=== PATIENT | male | born 1955 | race Caucasian/White ===

== ENCOUNTER 2020-08-07 09:05 | Outpatient (RCR) | payer MEDICARE, SELFPAY | END 2020-09-24 13:00 | disposition home or self-care (01) | LOC: HO.WCC 09:05 | PROVIDERS: Visit Provider Surgery | DX: T25.222D Burn of second degree of left foot, subsequent encounter (principal); T25.221D Burn of second degree of right foot, subsequent encounter; T31.0 Burns involving less than 10% of body surface; E11.42 Type 2 diabetes mellitus with diabetic polyneuropathy | CPT/HCPCS: 16020; 97597; 99213 ==

== ENCOUNTER 2020-11-10 01:07 | Outpatient (REF) | payer SELFPAY ==
[2020-11-10 06:58] LABS: Hematocrit 21.9 % (42-52); Mean Corpuscular HGB Conc 31.5 g/dl (31.0-36.0); Mean Corpuscular Hemoglobin 32.2 pg (27.0-33.0); Mean Corpuscular Volume 102.3 fL (80-98); Mean Platelet Volume 10.7 fL (9.4-12.4); NRBC Pct Auto 0.2 /100WBC (0.0-0.2); Platelet Count 170 X10*3/uL (160-400); Red Blood Count 2.14 X10*6/uL (4.60-5.80); Red Cell Distribution Width 20.1 % (11.0-16.0); White Blood Count 12.3 X10*3/uL (4.8-10.8)
[2020-11-10 07:30] LABS: Anion Gap 21 (12-20); Blood Urea Nitrogen 39 mg/dL (9-16); Calcium 8.2 mg/dL (8.4-10.2); Carbon Dioxide 20 mmol/L (22-29); Chloride 90 mmol/L (96-108); Glucose Random 133 mg/dL (60-115); Potassium 2.9 mmol/L (3.3-5.1); Sodium 128 mmol/L (135-145)
[2020-11-10 07:37] LABS: Hemoglobin 6.9 g/dl (14.0-18.0)
[2020-11-10 08:10] LABS: Estimated Glomerular Filt Rate 10
== END 2020-11-10 01:08 | disposition home or self-care (01) ==
LOC: HO.MMNH1L 01:07
PROVIDERS: Visit Provider Family Medicine
DX: I48.91 Unspecified atrial fibrillation (principal); I50.9 Heart failure, unspecified
CPT/HCPCS: 36415; 80048; 85027

== ENCOUNTER 2020-11-24 | Outpatient (REF) | payer SELFPAY ==
[2020-11-24 06:19] LABS: MANUAL DIFF FLAG NO
[2020-11-24 06:23] LABS: Basophils Absolute Auto 0.1 X10*3/uL (0.0-0.2); Basophils Percent Auto 0.5 % (0-2); Eosinophils Absolute Auto 0.9 X10*3/uL (0.0-0.4); Eosinophils Percent Auto 6.6 % (0-4); Hematocrit 23.5 % (42-52); Hemoglobin 7.4 g/dl (14.0-18.0); Imm Gran Abs Auto 0.17 X10*3/uL (0.00-0.03); Imm Gran Pct Auto 1.3 % (0.0-0.4); Lymphocytes Absolute Auto 1.1 X10*3/uL (1.2-4.9); Lymphocytes Percent Auto 8.5 % (20-40); Mean Corpuscular HGB Conc 31.5 g/dl (31.0-36.0); Mean Corpuscular Hemoglobin 32.2 pg (27.0-33.0); Mean Corpuscular Volume 102.2 fL (80-98); Mean Platelet Volume 10.4 fL (9.4-12.4); Monocytes Absolute Auto 1.5 X10*3/uL (0.1-1.2); NRBC Pct Auto 0.6 /100WBC (0.0-0.2); Neutrophils Absolute Auto 9.6 X10*3/uL (2.0-8.3); Neutrophils Percent Auto 72.1 % (45-73); Platelet Count 281 X10*3/uL (160-400); Red Cell Distribution Width 19.6 % (11.0-16.0); White Blood Count 13.3 X10*3/uL (4.8-10.8)
[2020-11-24 07:13] LABS: Anion Gap 21 (12-20); Blood Urea Nitrogen 49 mg/dL (9-16); Calcium 8.9 mg/dL (8.4-10.2); Carbon Dioxide 19 mmol/L (22-29); Chloride 94 mmol/L (96-108); Glucose Random 138 mg/dL (60-115); Sodium 131 mmol/L (135-145)
[2020-11-24 07:48] LABS: Estimated Glomerular Filt Rate 8
== END 2020-11-24 00:01 | disposition home or self-care (01) ==
LOC: HO.MMNH1L
PROVIDERS: Visit Provider Family Medicine
DX: I48.91 Unspecified atrial fibrillation (principal); I50.9 Heart failure, unspecified
CPT/HCPCS: 36415; 80048; 85025

== ENCOUNTER 2020-12-01 00:35 | Outpatient (REF) | payer SELFPAY | END 2020-12-01 00:36 | disposition home or self-care (01) | LOC: HO.MMNH1L 00:35 | PROVIDERS: Visit Provider Family Medicine | DX: Z13.89 Encounter for screening for other disorder (principal) ==

== ENCOUNTER 2020-12-08 00:21 | Outpatient (REF) | payer SELFPAY | END 2020-12-08 00:22 | disposition home or self-care (01) | LOC: HO.MMNH1L 00:21 | PROVIDERS: Visit Provider Family Medicine | DX: Z13.89 Encounter for screening for other disorder (principal) ==